=== PATIENT | female | born 1965 | race Caucasian/White ===

== ENCOUNTER 2018-03-06 10:21 | Outpatient (CLI) | payer OTHER | END 2018-03-06 10:36 | disposition home or self-care (01) | LOC: SONOGRAMA 10:21 | DX: N92.0 Excessive and frequent menstruation with regular cycle (principal); N84.0 Polyp of corpus uteri ==

== ENCOUNTER 2019-08-28 17:40 | Inpatient (IN) | payer OTHER ==
[~2019-08-28] VITALS: Ht 149.9 cm; Wt 46.3 kg
[2019-08-29] MEDS ORDERED: FLAGYL500MG (08:13)
[2019-08-29] MEDS ORDERED: MORGIDOX100 MG (08:14)
[2019-08-31] MEDS ORDERED: Tylenol #3 PO (10:41)
[2019-08-31] MEDS ORDERED: PYRIDIUM100 MG PO (10:41)
== END 2019-08-31 13:34 | disposition home or self-care (01) | DRG 759 ==
LOC: OB/GYN 17:40
PROVIDERS: ADMIT Obstetrics & Gynecology
DX: N73.8 Other specified female pelvic inflammatory diseases (principal); N73.0 Acute parametritis and pelvic cellulitis